=== PATIENT | male | born 1995 | race Caucasian/White ===

== ENCOUNTER 2017-07-29 16:00 | Emergency (ER) | payer BC ==
[~2017-07-29] VITALS: Ht 182.9 cm; Wt 96.0 kg
[2017-07-29 16:02] VITALS: BP 121/68; PULSE 64; RESP 20; TEMP 97.2; O2SAT 100
--- NOTE | 2017-07-29 17:50 | PD ---
HPI Chief Complaint: Headache Time Seen by Provider: 17:30 Travel History International Travel<30 days: No Contact w/Intl Traveler<30days: No Traveled to known affect area: No History of Present Illness HPI Patient is a 22-year-old male who presents to emergency room for CT of his brain. 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 Patient reports that around noontime, he saw a black dot to the left side of his visual field, reports that the black that was there for about 5 minutes and has not resolved, he began to have a right-sided temporal headache. Patient reports that symptoms lasted for about 4 hours and resolved on its own. He did follow-up with the [facility] and was told by his medical doctor to come to the ER for a CT of his brain. Patient at this time has complete resolution of symptoms. Reports that he did not take any medications to help resolve his headache. Patient denies any visual field deficits, denies any nausea or vomiting or headache at this time. [facility] Past Medical History Medical History: Denies Significant Hx Past Surgical History Surgical History: No Previous Surgery Social History Alcohol Use: No Tobacco Use: No Substance Use: No Allergies-Medications (Allergen,Severity, Reaction): Coded Allergies: No Known Allergies (Unverified , 07/29/17) Reported Meds & Prescriptions Reported Meds & Active Scripts Active No Active Prescriptions or Reported Medications Review of Systems General / Constitutional: No: Fever Eyes: Positive: Visual changes HENT: Positive: Headaches Cardiovascular: No: Chest Pain or Discomfort Respiratory: No: Shortness of Breath Gastrointestinal: No: Abdominal Pain Genitourinary: No: Dysuria Musculoskeletal: No: Pain Skin: No Rash Neurologic: Positive: Headache, No: Weakness Psychiatric: No: Depression Endocrine: No: Polydipsia Hematologic/Lymphatic: No: Easy Bruising Physical Exam Narrative GENERAL: NAD SKIN: Focused skin assessment warm/dry. HEAD: Atraumatic. Normocephalic. EYES: Pupils equal and round. No scleral icterus. No injection or drainage. ENT: No nasal bleeding or discharge. Mucous membranes pink and moist. NECK: Trachea midline. No JVD. CARDIOVASCULAR: Regular rate and rhythm. No murmur appreciated. RESPIRATORY: No accessory muscle use. Clear to auscultation. Breath sounds equal bilaterally. GASTROINTESTINAL: Abdomen soft, non-tender, nondistended. Hepatic and splenic margins not palpable. MUSCULOSKELETAL: No obvious deformities. No clubbing. No cyanosis. No edema. NEUROLOGICAL: Awake and alert. No obvious cranial nerve deficits. Motor grossly within normal limits. Normal speech. CN 2-12 grossly intact with no neurological deficits PSYCHIATRIC: Appropriate mood and affect; insight and judgment normal. Data Data Last Documented VS Vital Signs Date Time Temp Pulse Resp B/P (MAP) Pulse Ox O2 Delivery O2 Flow Rate FiO2 07/29/17 16:02 97.2 64 20 121/68 (85) [address] Brain W/O Iv Contrast(Rout) (07/29/17 17:40) [facility] Medical Decision Making Medical Screen Exam Complete: Yes Emergency Medical Condition: Yes Interpretation(s) Vital Signs Date Time Temp Pulse Resp B/P (MAP) Pulse Ox O2 Delivery O2 Flow Rate FiO2 07/29/17 16:02 97.2 64 20 121/68 (85) 100 Differential Diagnosis Differential includes complicated migraine, ICH Narrative Course Patient is a 22-year-old male who presents to the emergency room for a CT scan of his head. Reports that he had a migraine earlier today which resolved, he was seen by his [facility] physician and was told to come to the ER for a CT study given that this was his first migraine headache. Patient has no neurological deficits at this time, patient with no neurological deficits. Patient reports complete resolution of his symptoms without any medications. CT head ordered. CT of the head with no acute intracranial abnormality. Mild sinus disease A copy patient CT report was given to him at discharge. He remains asymptomatic with no complaints at this time. Patient denies complete resolution of symptoms. I reviewed patient's CT report in detail, he'll follow up with his primary care doctor and will return to emergency room as needed. Diagnosis Primary Impression: Headache Qualified Codes: R51 - Headache Patient Instructions: General Instructions Additional Instructions: Please provide patient with a copy of his CT report at discharge Please follow up with your primary care doctor and return to the ER as needed Scripts No Active Prescriptions or Reported Meds Disposition: 01 DISCHARGE HOME Condition: Stable Justine Sanchezfer Nathan DO Jul 29, 2017 17:49
--- NOTE | 2017-07-29 18:28 | RADRPT ---
EXAM DATE/TIME: 07/29/2017 18:18 [place] COMPARISON: No previous studies available for comparison. INDICATIONS : Headaches with blurred vision. RADIATION DOSE: 33.63 CTDIvol (mGy) MEDICAL HISTORY : None SURGICAL HISTORY : None. ENCOUNTER: Initial ACUITY: 1 day PAIN SCALE: 9/10 LOCATION: Bilateral cranial TECHNIQUE: Multiple contiguous axial images were obtained of the head. Using automated exposure control and adj ustment of the mA and/or kV according to patient size, radiation dose was kept as low as reasonably a chievable to obtain optimal diagnostic quality images. DICOM format image data is available electro nically for review and comparison. FINDINGS: CEREBRUM: The ventricles are normal for age. No evidence of midline shift, mass lesion, hemorrhage or acute in farction. No extra-axial fluid collections are seen. POSTERIOR FOSSA: The cerebellum and brainstem are intact. The 4th ventricle is midline. The cerebellopontine angle i s unremarkable. EXTRACRANIAL: There is mucoperiosteal thickening of the visualized ethmoid air cells. SKULL: The calvaria is intact. No evidence of skull fracture. CONCLUSION: No acute intracranial abnormality. Mild sinus disease. Richard Martini MD on July 29, 2017 at 18:25 Board Certified Radiologist. This report was verified electronically.
== END 2017-07-29 20:10 | disposition home or self-care (01) ==
LOC: NEPD 16:00
DX: R51 Headache (principal)
CPT/HCPCS: 70450; 99284